=== PATIENT | female | born 1975 | race Two or more races ===

== ENCOUNTER 2019-02-12 14:00 | Emergency (ER) | payer BC, MEDICAID ==
[~2019-02-12] VITALS: Ht 157.5 cm; Wt 91.0 kg
[2019-02-12] MEDS ORDERED: MORPHINE SULFATE 10 MG/ML CPJ IM ONE (17:30)
[2019-02-12] MEDS ORDERED: METOCLOPRAMIDE HCL 10MG/2ML VIAL IM ONE (17:30)
[2019-02-12] MEDS ORDERED: GLUCAGON,HUMAN RECOMBINANT 1MG/VIAL IM ONE (17:30)
[2019-02-12 18:05] LABS: CLARITY URINE CLEAR (CLEAR); COLOR URINE YELLOW (YELLOW); KETONES URINE NEGATIVE (NEGATIVE); LEUKOCYTE ESTERASE URINE TRACE (NEGATIVE); NITRITE URINE NEGATIVE (NEGATIVE); OCCULT BLOOD URINE NEGATIVE (NEGATIVE); PH URINE 7.5 (4.5-8.0); PROTEIN URINE NEGATIVE (NEGATIVE); SPECIFIC GRAVITY URINE 1.022 (1.005-1.030)
[2019-02-12 20:26] VITALS: BP 118/60
== END 2019-02-12 20:28 | disposition home or self-care (01) ==
LOC: ER 14:00
DX: S39.012A Strain of muscle, fascia and tendon of lower back, initial encounter (principal); K21.9 Gastro-esophageal reflux disease without esophagitis; Z98.84 Bariatric surgery status; V89.2XXA Person injured in unspecified motor-vehicle accident, traffic, initial encounter; Y93.89 Activity, other specified; Y92.89 Other specified places as the place of occurrence of the external cause; Y99.8 Other external cause status
CPT/HCPCS: 71046; 72100; 81003; 81025; 96372; 99284; J1610; J2270; J2765